=== PATIENT | male | born 2000 | race African-American/Black ===

== ENCOUNTER 2021-02-01 15:37 | Emergency (ER) | payer SELFPAY ==
[~2021-02-01 15:37] MED LIST: AUGMENTIN875TAB PO; KEFLEX500 MG PO; MEDDOSEPAK PO; NO HOME MEDS
[2021-02-01 15:58] LABS: IMMATURE GRANULOCYTES 0.1 % (0.0-5.0); MEAN CELL VOLUME 93.8 fL CALC (80.0-100.0); MEAN CORPUSCULAR HGB 31.3 pG CALC (26.0-32.0); MEAN CORPUSCULAR HGB CONC 33.3 g/dL CAL (32.0-36.0); NEUT# 3.89 thou/uL (1.82-7.42); RED BLOOD COUNT 4.8 mill/uL (4.70-6.10); RED CELL DISTRI WIDTH 13.6 % (11.5-15.5)
[2021-02-01 16:11] LABS: ALBUMIN 4.8 g/dL (3.2-5.0); ALKALINE PHOSPHATASE 59 u/l (38-126); ANION GAP 22 (6-22 (CALC)); BILIRUBIN, TOTAL 0.6 mg/dL (0.0-1.4); BUN 10 mg/dL (9-20); BUN/CREATININE RATIO 10 (12-20 (CALC)); CARBON DIOXIDE 18 mmol/l (22-30); CHLORIDE 102 mmol/l (95-108); CPK 298 u/l (52-200); CREATININE 1.1 mg/dL (0.7-1.3); ETHYL ALCOHOL 0 mg/dl (0-30); GFR > 60 ML/MIN (>=60 (CALC)); GFR FOR AFR.AMER. > 60 ML/MIN (>=60 (CALC)); LIPASE 45 u/l (23-300); POTASSIUM 3.7 mmol/l (3.5-5.1); SGOT/AST 30 u/l (17-59); SODIUM 138 mmol/l (137-146); TOTAL PROTEIN 7.7 g/dL (6.3-8.2)
[2021-02-01 16:28] LABS: ACT PARTIAL THROMBO TIME 22.3 SECONDS (20.0-32.5); INTERNATIONAL NORMALIZED RATIO 1.1 RATIO (0.7-1.3); PROTHROMBIN TIME 11.7 SECONDS (9.0-12.5)
[2021-02-01 16:40] LABS: TSH, 3RD GENERATION 0.66 uIU/mL (0.47 - 4.68)
[2021-02-01 18:04] VITALS: BP 144/84
== END 2021-02-01 18:15 | disposition home or self-care (01) | DRG 948 ==
LOC: ED 15:37
DX: R41.0 Disorientation, unspecified (principal); Z20.822 Contact with and (suspected) exposure to COVID-19

== ENCOUNTER 2021-05-11 12:03 | Emergency (ER) | payer OTHER ==
[2021-05-11 12:10] VITALS: BP 143/75
== END 2021-05-11 12:13 | DRG 923 ==
LOC: ED 12:03 → EDBD 12:07 → ED 12:13
DX: Z04.1 Encounter for examination and observation following transport accident (principal); Z91.19 Patient's noncompliance with other medical treatment and regimen